=== PATIENT | female | born 1990 | race Caucasian/White ===

== ENCOUNTER 2019-06-19 03:16 | Emergency (ER) | payer BC ==
[~2019-06-19] VITALS: Ht 170.2 cm; Wt 68.0 kg
[~2019-06-19 03:16] MED LIST: EPIPEN 2-P0.3 MG/0.3 IM; PREDNISONE50 MG PO
[2019-06-19] MEDS ORDERED: ADDERALL 30 MG30 MG PO (03:25)
[2019-06-19] MEDS ORDERED: ZPAK PO (05:17)
[2019-06-19] MEDS ORDERED: IBUPROFEN 800800 M1 PO (05:17)
[2019-06-19 05:38] VITALS: BP 118/62
== END 2019-06-19 05:41 | disposition home or self-care (01) ==
LOC: ER 03:16
DX: J01.10 Acute frontal sinusitis, unspecified (principal); R11.2 Nausea with vomiting, unspecified; F90.9 Attention-deficit hyperactivity disorder, unspecified type